=== PATIENT | female | born 2000 | race Hispanic/Latino ===

== ENCOUNTER 2021-09-12 00:29 | Emergency (ER) | payer MEDICAID, OTHER ==
[~2021-09-12] VITALS: Ht 172.7 cm; Wt 99.8 kg
[2021-09-12] MEDS ORDERED: KETOROLAC TROMETHAMINE 60 MG/2 ML VIAL IM ONE (01:15)
== END 2021-09-12 01:20 | disposition home or self-care (01) ==
LOC: ER 00:35
DX: S39.012A Strain of muscle, fascia and tendon of lower back, initial encounter (principal); W01.0XXA Fall on same level from slipping, tripping and stumbling without subsequent striking against object, initial encounter; Y93.01 Activity, walking, marching and hiking; Y92.89 Other specified places as the place of occurrence of the external cause
CPT/HCPCS: 99282